=== PATIENT | female | born 1970 | race Caucasian/White ===

== ENCOUNTER 2019-01-03 05:55 | Day surgery (SDC) | payer OTHER ==
[2019-01-03] MEDS ORDERED: MIDAZOLAM 1 MG/ML 2 ML INJ (08:19)
[2019-01-03] MEDS ORDERED: FENTAnyl 50 MCG/ML VIAL (08:19)
== END 2019-01-03 17:52 | disposition home or self-care (01) ==
LOC: GIL 05:55
DX: K29.50 Unspecified chronic gastritis without bleeding (principal)
CPT/HCPCS: 43239; 84703; 88305; 88312